=== PATIENT | male | born 1990 | race African-American/Black ===

== ENCOUNTER 2021-10-04 21:09 | Emergency (ER) | payer MEDICAID, SELFPAY ==
[2021-10-04 21:26] VITALS: BP 139/94; PULSE 95; RESP 18; TEMP 37.2; O2SAT 99
[2021-10-04 21:47] VITALS: RESP 18
--- NOTE | 2021-10-04 22:00 | DI.CT_ITS ---
Exam(s) CT ABDOMEN PELVIS W EXAM: CT ABDOMEN PELVIS W CLINICAL HISTORY: Periumbilical and LLQ abd pain,. TECHNIQUE: Imaging Protocol: Axial computed tomography images with coronal and sagittal reformatted images were created and reviewed CONTRAST MATERIAL: Intravenous: Omnipaque 100cc Oral: None COMPARISON: No exams were available for comparison FINDINGS: VISUALIZED LUNG BASES: No nodules nor pleural effusions evident. ABDOMEN: There is no ascites. LIVER: There are no focal hepatic lesions evident . GALLBLADDER/BILIARY: No obvious gallbladder pathology. CBD is not dilated. PANCREAS: No evidence of pancreatic mass nor dilatation of the pancreatic duct. SPLEEN: Spleen is not enlarged. No obvious intrasplenic lesions. Splenic and portal veins are paten t. ADRENALS: There are no significant adrenal masses. KIDNEYS:No cysts evident. No solid renal masses. No calculi nor hydronephrosis.. ABDOMINAL AORTA: Abdominal aorta is not enlarged. LYMPH NODES:There is no retroperitoneal nor paraaortic adenopathy. ABDOMINAL WALL: No evidence of significant anterior abdominal wall nor inguinal hernia. GI: There is no evidence of bowel obstruction, free air, nor abscess. PELVIS: GI: No evidence of appendicitis.No evidence of sigmoid diverticulitis. LYMPH NODES: There is no intrapelvic nor inguinal adenopathy. REPRODUCTIVE: Prostate gland is not enlarged. Seminal vesicles unremarkable URINARY BLADDER: No calculi nor obvious masses evident OSSEOUS: No significant osseous lesions. IMPRESSION: 1. No significant acute findings in the abdomen pelvis. RADIATION DOSE DELIVERED: 1,273.8mGy.cm Total DLP DATA REPOSITORY: All CT scans at this facility are submitted to the National Radiology Data Registry (NRDR) Dose Index Registry (DIR) with the [employer] ([employer]). RADIATION OPTIMIZATION: All CT scans at this facility use at least one of these dose optimization te chniques: automated exposure control; mA and/or kV adjustment per patient size (includes targeted exa ms where dose is matched to clinical indication); or iterative reconstruction.
--- NOTE | 2021-10-04 22:09 | W.ED.GENAD ---
Discharge Plan Disposition Patient Disposition: HOME Condition: Stable Discharge Details Clinical Impression: Abdominal pain Primary Care Provider: Unknown,Unknown ED Provider: Catherine Kelley Home Meds and New Rx's Prescriptions: Continued amoxicillin-pot clavulanate 875-125 mg Tablet 1 tab 2XD methadone 10 mg Tablet 10 mg PO DAILY albuterol 90 mcg/actuation Aerosol 90 mcg INHALATION PRN omeprazole 20 mg Capsule,Delayed Release(Dr/Ec) 20 mg PO DAILY Discharge Instructions Instructions: Abdominal Pain (ED) Additional Instructions: CT today was read as negative however it does appear that you might have something called diverticulitis. Please continue taking the antibiotic that you are previously prescribed and keep your previous appointment. No evidence of urinary tract infection. Follow up with primary care provider in 3-5 days. Return to ED sooner if any worsening or concerns. Increase oral fluids. Please take the antibiotic with a probiotic or yogurt daily. Please take Tylenol or Ibuprofen with food every 4-6 hours as needed for pain and swelling. Medical Decision Making 31-year-old male presents to the ER with a chief complaint of abdominal pain periumbilical and left lower quadrant pain which been on and off for 6 months or more. Patient is being followed at [facility] and is here for second opinion essentially. He reports that the pain got worse over the last 2 nights. He does report diarrhea over the last week. He denies any nausea vomiting no history of abdominal surgeries. He reports that he has been referred to urology and is supposed to have exploratory laparotomy surgery. He is currently taking Augmentin twice daily. He does report increased urinary frequency denies any dysuria. Labs are largely unremarkable, sodium is 134, no evidence of UTI no leukocytes or nitrites. CT is also unremarkable. However upon my review of it it does appear to be consistent possibly with diverticulitis. Patient is on Augmentin I will encourage continuation of the antibiotic. Will send patient home with pain medication. Discussed results with patient who verbalized understanding. Imaging Data Radiologic Study: Imaging: CT Scan Radiologist's impression: FINDINGS: Liver: Unremarkable. No mass. Gallbladder and bile ducts: No calcified stones. No ductal dilation. Pancreas: Unremarkable. No ductal dilation. Spleen: Unremarkable. No splenomegaly. Adrenal glands: Normal. No mass. Kidneys and ureters: Unremarkable. No hydronephrosis. Stomach and bowel: Unremarkable. No obstruction. No mucosal thickening. Appendix: No evidence of appendicitis. Intraperitoneal space: No free air. No significant fluid collection. Vasculature: No abdominal aortic aneurysm. Lymph nodes: No enlarged lymph nodes. Urinary bladder: Unremarkable as visualized. Reproductive: Unremarkable as visualized. Bones/joints: Unremarkable. No acute fracture. Soft tissues: Unremarkable. IMPRESSION: No acute findings. Lab Data Lab results reviewed: Yes I reviewed the patient's lab results. Labs: Laboratory Tests Range/Units 10/04/21 10/04/21 10/04/21 22:26 22:26 22:40 WBC (4.4-10.8) 10^3/uL 8.38 RBC (4.36-5.78) 10^6/uL 5.79 H Hgb (13.5-17.5) g/dL 15.6 Hct (40.0-50.0) % 45.7 MCV (80-95) fL 79 L MCH (27.0-33.0) pg 26.9 L MCHC (32.0-36.0) % 34.1 RDW (11.8-14.1) % 13.8 Plt Count (130-400) 10^3/uL 270 MPV (8.0-11.0) fL 11.3 H Immature Gran % 0.2 Neutrophils % 58.1 Lymphocytes % 32.5 Monocytes % 6.2 Eosinophils % 2.0 Basophils % 1.0 Nucleated RBC % (0.0-0.3) % 0.0 Absolute Neutrophils (1.2-6.7) 10^3/uL 4.87 Absolute Lymphocytes (1.2-3.4) 10^3/uL 2.72 Absolute Monocytes (0.1-0.8) 10^3/uL 0.52 Absolute Eosinophils (0.0-0.7) 10^3/uL 0.17 Absolute Basophils (0.0-0.2) 10^3/uL 0.08 Sodium (136-145) mmol/L 134 L Potassium (3.5-5.1) mmol/L 3.7 Chloride (98-107) mmol/L 101 Carbon Dioxide (21.0-32.0) mmol/L 26.2 Anion Gap (3-11) mmol/L 6.8 BUN (7-18) mg/dL 14 Creatinine (0.70-1.30) mg/dL 0.8 Estimated GFR/1.73 m2 (mL/min/1.73m2) >= 60.00 Glucose (74-106) mg/dL 92 Calcium (8.5-10.1) mg/dL 9.5 Magnesium (1.8-2.4) mg/dL 1.9 Total Bilirubin (0.2-1.0) mg/dL 0.8 AST (15-37) U/L 21 ALT (16-63) U/L 51 Alkaline Phosphatase (46-116) U/L 66 Total Protein (6.4-8.2) g/dL 8.0 Albumin (3.4-5.0) g/dL 4.5 Lipase (73-393) U/L 115 Urine Color (Yellow) Yellow Urine Clarity (Clear) Cloudy Urine pH (5-8) 7.5 Ur Specific [place] (1.005-1.025) 1.020 Urine Protein (Negative) mg/dL Negative Urine Ketones (Negative) mg/dL Negative Urine Blood (Negative) Negative Urine Nitrite (Negative) Negative Urine Bilirubin (Negative) Negative Urine Urobilinogen (Up TO 0.2) EU/dL 0.2 Ur Leukocyte Esterase (Negative) Negative Urine Glucose (Negative) mg/dL Negative HPI General Mode of arrival: ambulatory. Date/Time Provider Initiated Documentation: 10/04/21 21:31. Limitations to Documentation: no limitations. Information obtained by: patient, RN notes reviewed and old records reviewed. HPI Narrative: 31-year-old male presents to the ER with a chief complaint of abdominal pain periumbilical and left lower quadrant pain which been on and off for 6 months or more. Patient is being followed at [facility] and is here for second opinion essentially. He reports that the pain got worse over the last 2 nights. He does report diarrhea over the last week. He denies any nausea vomiting no history of abdominal surgeries. He reports that he has been referred to urology and is supposed to have exploratory laparotomy surgery. He is currently taking Augmentin twice daily. He does report increased urinary frequency denies any dysuria. Related Data Home Medications Medication Instructions Recorded Confirmed albuterol 90 mcg/actuation aerosol 90 mcg inhalation PRN 10/04/21 inhaler amoxicillin 875 mg-potassium 1 tab 2XD 10/04/21 10/04/21 clavulanate 125 mg tablet methadone 10 mg tablet 10 mg PO DAILY 10/04/21 10/04/21 omeprazole 20 mg capsule,delayed 20 mg PO DAILY 10/04/21 10/04/21 release Allergies Allergy/AdvReac Type Severity Reaction Status Date / Time cefaclor [From [facility]] AdvReac Mild Itching Unverified 10/04/21 21:31 General Stated Complaint: GenMedical REINALDO: 3 Review of Systems All systems reviewed & are unremarkable except as noted in HPI and below Gastrointestinal Gastrointestinal: Reports as per HPI, Reports abdominal pain, Reports diarrhea, Denies nausea and Denies vomiting Genitourinary Genitourinary: Denies dysuria, Denies testicular pain and Reports urinary frequency PFSH All Active Problems (Updated 10/04/21 @ 23:52 by Catherine Kelley NP) Abdominal pain (Acute) Social History Smoking/Tobacco Use Status: Never Smoking risk assessment performed?: Yes Alcohol Intake: never Drug use: Current Sobriety Substance use type: former substance user Do you feel safe at home: Yes Do you feel safe in your relationship?: Yes Exam Narrative Exam Narrative: Constitutional: Alert and oriented x3. Appears stated age. Normal body habitus. Head: Normocephalic, no trauma. Eyes: Pupils PERRL, Red reflex noted, EOM's intact. Eyelids symmetrical without lesions, discharge, or swelling. ENT: Bilateral TM's WNL, External ear normal to inspection, no mastoid TTP, swelling, or erythema, Nasal turbinates WNL, no nasal discharge. Normal dentition, Posterior pharynx WNL, no exudate. Chest: RRR, Normal S1, S2, distal pulses intact. Resp: Lungs clear to auscultation bilaterally, no wheezes, rales, or rhonchi. Abdomen: Soft, non-distended, tenderness noted periumbilical, left lower quadrant with palpation. Musculoskeletal: Normal gait, 5/5 strength to all four extremities. Skin: No suspicious rashes or lesions. Capillary refill less than 2 sec. Neurologic: Cranial nerves II-XII intact. Alert and oriented x 3. Motor: No deficits noted. Sensory: Intact bilaterally all 4 extremities. Reflexes: DTR's intact bilaterally.. Hematologic/Lymphatic: No ecchymosis, no lymphadenopathy. Course Vital Signs Vital signs: Vital Signs Temperature 37.2 C 10/04/21 21:26 Pulse 95 H 10/04/21 21:26 Respiratory Rate 18 10/04/21 21:26 Blood Pressure 139/94 H 10/04/21 21:26 Pulse Oximetry 99 10/04/21 21:26 Temperature 37.2 C 10/04/21 21:26 Temperature Source Temporal Artery Scan 10/04/21 21:26 Pulse 95 H 10/04/21 21:26 Respiratory Rate 18 10/04/21 21:47 Respiratory Effort Non-Labored 10/04/21 21:47 Respiratory Depth Normal 10/04/21 21:47 Respiratory Pattern Normal 10/04/21 21:47 Blood Pressure 139/94 H 10/04/21 21:26 Blood Pressure Position Sitting 10/04/21 21:26 Pulse Oximetry 99 10/04/21 21:26 Oxygen Delivery Method Room Air 10/04/21 21:26 Oxygen Flow Rate 0 10/04/21 21:26 Pain Level 8 10/04/21 21:26
[2021-10-04 22:36] LABS: Abs Immature Grans 0.02 10^3/uL (0.0-0.06); Absolute Basophil Count 0.08 10^3/uL (0.0-0.2); Absolute Eosinophil Count 0.17 10^3/uL (0.0-0.7); Absolute Lymphocyte Count 2.72 10^3/uL (1.2-3.4); Absolute Monocyte Count 0.52 10^3/uL (0.1-0.8); Absolute Neutrophil Count 4.87 10^3/uL (1.2-6.7); HCT 45.7 % (40.0-50.0); HGB 15.6 g/dL (13.5-17.5); Immature Grans % 0.2; Lymphocytes % 32.5; MCH 26.9 pg (27.0-33.0); MCHC 34.1 % (32.0-36.0); MCV 79 fL (80-95); MPV 11.3 fL (8.0-11.0); Monocytes % 6.2; Neutrophils % 58.1; Platelet Count 270 10^3/uL (130-400); RBC 5.79 10^6/uL (4.36-5.78); RDW 13.8 % (11.8-14.1); RDW-SD 39.4 fL; WBC 8.38 10^3/uL (4.4-10.8)
[2021-10-04] MEDS: Omnipaque 350 MG/ML 100 ML BTL IJ (22:38)
[2021-10-04] MEDS: Normal Saline Flush 10 ML SYR IVP (22:39)
[2021-10-04 22:47] LABS: Bilirubin Negative (Negative); Blood Negative (Negative); Clarity Cloudy (Clear); Glucose Negative (Negative); Ketones Negative (Negative); Leukocyte Esterase Negative (Negative); Nitrite Negative (Negative); Urobilinogen 0.2 EU/dL (Up TO 0.2); pH 7.5 (5-8)
[2021-10-04 22:55] LABS: ALT 51 U/L (16-63); AST 21 U/L (15-37); Albumin 4.5 g/dL (3.4-5.0); Alkaline Phosphatase 66 U/L (46-116); Anion Gap 6.8 mmol/L (3-11); BUN 14 mg/dL (7-18); Bilirubin, Total 0.8 mg/dL (0.2-1.0); CO2 26.2 mmol/L (21.0-32.0); CREATININE 0.8 mg/dL (0.70-1.30); Calcium 9.5 mg/dL (8.5-10.1); Chloride 101 mmol/L (98-107); Glucose 92 mg/dL (74-106); Lipase 115 U/L (73-393); Magnesium 1.9 mg/dL (1.8-2.4); Potassium 3.7 mmol/L (3.5-5.1); Sodium 134 mmol/L (136-145)
--- NOTE | 2021-10-04 23:38 | DI.VRAD_ITS ---
PROCEDURE INFORMATION: Exam: CT Abdomen And Pelvis With Contrast Exam date and time: 10/04/2021 10:42 PM Age: 31 years old Clinical indication: Other: Periumbillical and llq abd pain TECHNIQUE: Imaging protocol: Computed tomography of the abdomen and pelvis with contrast. Radiation optimization: All CT scans at this facility use at least one of these dose optimization techniques: automated exposure control; mA and/or kV adjustment per patient size (includes targeted exams where dose is matched to clinical indication); or iterative reconstruction. Contrast material: OMNIPAQUE 350; Contrast volume: 100 ml; Contrast route: INTRAVENOUS (IV); COMPARISON: No relevant prior studies available. FINDINGS: Liver: Unremarkable. No mass. Gallbladder and bile ducts: No calcified stones. No ductal dilation. Pancreas: Unremarkable. No ductal dilation. Spleen: Unremarkable. No splenomegaly. Adrenal glands: Normal. No mass. Kidneys and ureters: Unremarkable. No hydronephrosis. Stomach and bowel: Unremarkable. No obstruction. No mucosal thickening. Appendix: No evidence of appendicitis. Intraperitoneal space: No free air. No significant fluid collection. Vasculature: No abdominal aortic aneurysm. Lymph nodes: No enlarged lymph nodes. Urinary bladder: Unremarkable as visualized. Reproductive: Unremarkable as visualized. Bones/joints: Unremarkable. No acute fracture. Soft tissues: Unremarkable. IMPRESSION: No acute findings. Dictated and Authenticated by: Otilio Berger MD. Ordering:STEVEN Alexander MD
--- NOTE | 2021-10-05 15:25 | NUR.NOTE ---
Nursing Note: Patient called asking about the prescription for tramadol. After looking at the chart, there was no prescription for tramadol. Per Dr. Maradiaga the patient will need to return for this medication. Patient was given this information, he will try his PCP.
--- NOTE | 2021-10-05 17:43 | NUR.NOTE ---
Nursing Note: Patient called asking for the results of his CT scan. He thought he was told that he had diverticulitis. Per both DEB and Dr. Webb there were no acute findings abdomen pelvis. Per Dr Maradiaga the patient was told this.
== END 2021-10-05 00:04 | disposition home or self-care (01) ==
PROVIDERS: Emergency Provider Registered Nurse Emergency
DX: R10.32 Left lower quadrant pain (principal); R19.7 Diarrhea, unspecified
CPT/HCPCS: 36415; 80053; 83690; 99285; 74177; 81003; 83735; 85025; 99284; J3490